=== PATIENT | male | born 1990 | race Caucasian/White ===

== ENCOUNTER 2018-06-05 04:12 | Emergency (ER) | payer OTHER ==
[~2018-06-05] VITALS: Ht 180.3 cm; Wt 79.4 kg
--- NOTE | 2018-06-05 04:24 | NUR ---
DR CHANCE HOOD MD AT BEDSIDE FOR MSE.
--- NOTE | 2018-06-05 04:44 | NUR ---
LAB AT PT BEDSIDE FOR BLOOD DRAW.
--- NOTE | 2018-06-05 05:38 | NUR ---
Patient discharged to home in stable conditon. Written and verbal after care instructions given. Patient verbalizes understanding of instructions. Pt provided copy of labs per pt request. All pt needs attended and met. No distress noted.
[2018-06-05 05:40] VITALS: BP 122/84
== END 2018-06-05 05:41 | disposition home or self-care (01) ==
LOC: ER 04:20
DX: Z77.21 Contact with and (suspected) exposure to potentially hazardous body fluids (principal)
CPT/HCPCS: 86704; 86706; 86803; 87806; A4663